=== PATIENT | male | born 1995 | race Caucasian/White ===

== ENCOUNTER 2018-08-30 09:33 | Emergency (ER) | payer OTHER ==
[~2018-08-30] VITALS: Ht 177.8 cm; Wt 76.0 kg
--- NOTE | 2018-08-30 10:04 | NUR ---
PT AMBULATORY TO ROOM 24 W/ C/O BILAT FLANK PAIN, N/V/D STARTED 2 NIGHTS AGO. PT STATES NO ONE ELSE AROUND HIM IS SICK W/ SIMILAR SX. PT RESTING ON GUREVELYN. URVASHI. VSS.
--- NOTE | 2018-08-30 10:05 | NUR ---
REPORT GIVEN TO HARI MACKEY.
[2018-08-30] MEDS ORDERED: ONDANSETRON ODT 4 MG ONE (10:18)
--- NOTE | 2018-08-30 10:25 | NUR ---
Amublated to the restroom with a steady gait. Zofran admin. Lab at bedside. No other needs.
[2018-08-30 10:30] LABS: BASOPHILS # (AUTO) 0.01 x10^3/uL (0-0.1); BASOPHILS % (AUTO) 0 % (0-1); EOSINOPHILS # (AUTO) 0.33 x10^3/uL (0-0.4); EOSINOPHILS % (AUTO) 4 % (1-7); LYMPHOCYTES # (AUTO) 1.58 x10^3/uL (1-3.4); LYMPHOCYTES % (AUTO) 21 % (22-44); MD NO; MEAN CORPUSCULAR HGB CONC 34.1 g/dL (33.2-36.2); MONOCYTES # (AUTO) 1.13 x10^3/uL (0.2-0.8); MONOCYTES % (AUTO) 15 % (2-9); NEUTROPHILS # (AUTO) 4.56 x10^3/uL (1.8-6.8); NEUTROPHILS % (AUTO) 60 % (42-75); PLATELET COUNT 245 x10^3/uL (130-400); RED BLOOD COUNT 5.74 x10^6/uL (4.38-5.82); RED CELL DISTRIBUTION WIDTH 12.4 % (9.4-14.8)
[2018-08-30 10:42] LABS: ALANINE AMINOTRANSFERASE 17 U/L (12-78); ALBUMIN 4.2 g/dL (3.4-5.0); ANION GAP 8 mmol/L (5-15); CALCIUM 8.8 mg/dL (8.5-10.1); CHLORIDE 106 mmol/L (98-107); CREATININE 1.16 mg/dL (0.7-1.3)
[2018-08-30 10:45] LABS: ALKALINE PHOSPHATASE 110 U/L (45-117); BILIRUBIN,TOTAL 0.9 mg/dL (0.2-1.0); TOTAL PROTEIN 7.7 g/dL (6.4-8.2)
[2018-08-30] MEDS ORDERED: ONDANSETRON ODT 8 MG PO ONE (11:00)
[2018-08-30 11:11] VITALS: BP 115/59
== END 2018-08-30 11:13 | disposition home or self-care (01) ==
LOC: ED 11:02
DX: E86.0 Dehydration (principal); R11.2 Nausea with vomiting, unspecified; R19.7 Diarrhea, unspecified
CPT/HCPCS: 36415; 80053; 85025; 99283; Q0162